=== PATIENT | female | born 1960 | race Caucasian/White ===

== ENCOUNTER 2017-12-14 17:21 | Inpatient (IN) ==
[2017-12-14] MEDS ORDERED: MORPHINE 2 MG/1 ML SYRINGE IV STA (18:05)
[2017-12-14] MEDS ORDERED: ACETAMINOPHEN 500 MG TABLET PO STA (18:05)
[2017-12-14] MEDS ORDERED: ONDANSETRON 4 MG/2 ML VIAL IV STA (18:05)
[2017-12-14] MEDS ORDERED: ALBUTEROL/IPRATROPIUM 3 ML NEB RESP TX STA (18:05)
[2017-12-14] MEDS ORDERED: SODIUM CHLORIDE 0.9% 500 ML IV STA (18:05)
[2017-12-14] MEDS ORDERED: ONDANSETRON 4 MG/2 ML VIAL ONE (18:45)
[2017-12-14] MEDS ORDERED: ACETAMINOPHEN 500 MG TABLET ONE (18:46)
[2017-12-14] MEDS ORDERED: MORPHINE 2 MG/1 ML SYRINGE ONE (18:46)
[2017-12-14] MEDS ORDERED: LEVOFLOXACIN INJ 500 MG in PREMIX 1 EACH IV STA (18:58)
[2017-12-14 19:17] LABS: Basophils % 0.2 % (0.0-0.8); Eosinophils # 0.1 10*3/uL (0.0-0.87); Eosinophils % 0.7 % (0.00-10.9); Hematocrit 35.8 VOL% (35.7-47.0); Hemoglobin 11.1 GM/DL (12.0-16.0); Immature Granulocytes % 0.4 %; Immature Granulocytes Absolute 0.06 #; Lymphocytes % 13.4 % (21.3-54.2); Mean Corpuscular Hemoglobin 25 PG (27-34); Mean Corpuscular Volume 79.6 FL (87-102); Mean Platelet Volume 10.7 FL (9.6-12.0); Monocytes # 0.9 10*3/uL (0.11-0.8); Monocytes % 5.7 % (1.7-12.7); Neutrophils # 12.1 10*3/uL (1.4-7.4); Neutrophils % 79.6 % (38.7-73.9); Platelet Count 333 T/CUMM (130-400); Red Cell Distribution Width 15.9 % (9.3-17.3); White Blood Count 15.2 T/CUMM (4-12)
[2017-12-14 19:37] LABS: Albumin 3.5 G/DL (3.4-5.0); Bilirubin,Total 0.8 MG/DL (0.2-1.0); Calcium 9.3 MG/DL (8.5-10.1); Osmolality,Calculated 273.4 MOS/KG (273-304); Total Protein 7.9 G/DL (6.4-8.3)
[2017-12-14 19:39] LABS: Lactic Acid 1.8 MMOL/L (0.4-2.0); Troponin I Only < 0.015 NG/ML (0.00-0.045)
[2017-12-14] MEDS ORDERED: MORPHINE 2 MG/1 ML SYRINGE IV PRN (20:47)
[2017-12-14] MEDS ORDERED: ACETAMINOPHEN 325 MG TABLET PO PRN (20:47)
[2017-12-14] MEDS ORDERED: ONDANSETRON 4 MG/2 ML VIAL IV PRN (20:47)
[2017-12-14] MEDS ORDERED: GLUCAGON 1 MG VIAL IM PRN (20:47)
[2017-12-14] MEDS ORDERED: DEXTROSE 50% 25 GM/50 ML VIAL IV PRN (20:47)
[2017-12-14] MEDS ORDERED: LEVOFLOXACIN INJ 100 ML IV ONE (21:10)
[2017-12-14] MEDS ORDERED: ALBUTEROL/IPRATROPIUM 3 ML NEB RESP TX PRN (21:13)
[2017-12-14] MEDS: ENOXAPARIN 40 MG/0.4 ML SYRINGE SUBCUT SCH (23:03)
[2017-12-14] MEDS: LEVOFLOXACIN INJ 750 MG in PREMIX 1 EACH IV SCH (23:03)
[2017-12-14] MEDS: INSULIN LISPRO 100 UNIT/ML SUBCUT SCH (23:03)
[2017-12-14] MEDS: SODIUM CHLORIDE 0.9% 1,000 ML IV SCH (23:29)
[2017-12-15 05:46] LABS: Basophils % 0.4 % (0.0-0.8); Eosinophils # 0.3 10*3/uL (0.0-0.87); Eosinophils % 2.9 % (0.00-10.9); Hematocrit 32.6 VOL% (35.7-47.0); Hemoglobin 9.8 GM/DL (12.0-16.0); Immature Granulocytes % 0.5 %; Immature Granulocytes Absolute 0.05 #; Lymphocytes # 1.8 10*3/uL (1.4-4.0); Mean Corpuscular HGB Conc 30.1 GM/DL (32-36); Mean Corpuscular Hemoglobin 24 PG (27-34); Mean Corpuscular Volume 81.1 FL (87-102); Mean Platelet Volume 10.6 FL (9.6-12.0); Monocytes # 0.8 10*3/uL (0.11-0.8); Monocytes % 8.2 % (1.7-12.7); Platelet Count 268 T/CUMM (130-400); Red Blood Count 4.02 MC/CUMM (3.8-5.5); Red Cell Distribution Width 15.9 % (9.3-17.3)
[2017-12-15 06:16] LABS: Calcium 8.6 MG/DL (8.5-10.1)
[2017-12-15] MEDS: PANTOPRAZOLE 40 MG TABLET PO SCH (09:09)
[2017-12-15] MEDS: INSULIN LISPRO 100 UNIT/ML SUBCUT SCH ×4 (09:27→21:36)
[2017-12-15 09:36] LABS: Apearance,Urine Slightly Hazy (Clear); Bilirubin,Urine Negative (Negative); Blood, Urine Negative (Negative); Glucose,Urine (UA) >=500 mg/dL (Negative); Ketones,Urine 5 mg/dL (Negative); Mucus,Urine Occasional /LPF (Occasional); Nitrite,Urine Negative (Negative); Protein,Urine Negative; RBC,Urine 8 /HPF (0-4); Squamous Epithelial Cell,Urine Occasional /HPF (0-10); Urine Color Yellow (Yellow); Urine Specific Gravity 1.014 (1.001-1.035); Urine Urobilinogen < 2.0 EU/DL (0.2-1.0); WBC,Urine 62 /HPF (0-6)
[2017-12-15] MEDS: SODIUM CHLORIDE 0.9% 1,000 ML IV SCH ×2 (10:13→21:36)
[2017-12-15] MEDS: ACETYLCYSTEINE 600 MG CAPSULE PO SCH ×2 (14:20→21:44)
[2017-12-15] MEDS: CYCLOBENZAPRINE 10 MG TABLET PO SCH ×2 (14:20→21:35)
[2017-12-15] MEDS: AZTREONAM 1,000 MG in SYRINGE 1 EACH IV SCH ×2 (14:20→21:55)
[2017-12-15] MEDS: amLODIPine 5 MG TABLET PO SCH (17:30)
[2017-12-15] MEDS: hydroCHLOROthiazide 12.5 MG CAPSULE PO SCH (17:58)
[2017-12-15] MEDS: METOPROLOL SUCCINATE XL 100 MG TABLET PO SCH (17:58)
[2017-12-15] MEDS ORDERED: INSULIN GLARGINE 100 UNIT/ML SUBCUT SCH (21:00)
[2017-12-15] MEDS: LEVOFLOXACIN INJ 750 MG in PREMIX 1 EACH IV SCH (21:32)
[2017-12-15] MEDS: LACTULOSE 20 GM/30 ML UDCUP PO SCH (21:34)
[2017-12-15] MEDS: DOCUSATE SODIUM 100 MG CAPSULE PO SCH (21:35)
[2017-12-15] MEDS: ENOXAPARIN 40 MG/0.4 ML SYRINGE SUBCUT SCH (21:35)
[2017-12-15] MEDS: POLYETHYLENE GLYCOL POWDER 17 GM PACK PO SCH (21:38)
[2017-12-15] MEDS: PRAMIPEXOLE 0.25 MG TABLET PO SCH (21:55)
[2017-12-16] MEDS: AZTREONAM 1,000 MG in SYRINGE 1 EACH IV SCH ×3 (06:21→22:02)
[2017-12-16 06:43] LABS: Basophils # 0.1 10*3/uL (0.0-0.2); Basophils % 0.4 % (0.0-0.8); Eosinophils # 0.4 10*3/uL (0.0-0.87); Eosinophils % 3.1 % (0.00-10.9); Hematocrit 36.3 VOL% (35.7-47.0); Hemoglobin 11.3 GM/DL (12.0-16.0); Immature Granulocytes % 0.4 %; Immature Granulocytes Absolute 0.06 #; Lymphocytes % 21.4 % (21.3-54.2); Mean Corpuscular HGB Conc 31.1 GM/DL (32-36); Mean Corpuscular Hemoglobin 25 PG (27-34); Mean Corpuscular Volume 79.1 FL (87-102); Mean Platelet Volume 10.8 FL (9.6-12.0); Monocytes # 1.3 10*3/uL (0.11-0.8); Monocytes % 9.1 % (1.7-12.7); Neutrophils # 9.2 10*3/uL (1.4-7.4); Neutrophils % 65.6 % (38.7-73.9); Platelet Count 343 T/CUMM (130-400); Red Blood Count 4.59 MC/CUMM (3.8-5.5); Red Cell Distribution Width 15.9 % (9.3-17.3); White Blood Count 13.9 T/CUMM (4-12)
[2017-12-16 06:48] LABS: INR 1.1; PT Patient Result 11.4 SECS
[2017-12-16 07:20] LABS: Folate 14.8 NG/ML (5.4-24.0)
[2017-12-16] MEDS: SODIUM CHLORIDE 0.9% 1,000 ML IV SCH ×2 (07:25→16:14)
[2017-12-16 07:26] LABS: Bilirubin,Total 1.3 MG/DL (0.2-1.0); Calcium 9.1 MG/DL (8.5-10.1); Osmolality,Calculated 272.2 MOS/KG (273-304); Total Protein 7.1 G/DL (6.4-8.3)
[2017-12-16] MEDS: PRAMIPEXOLE 0.25 MG TABLET PO SCH ×3 (09:42→22:00)
[2017-12-16] MEDS: MIRTAZAPINE 30 MG TABLET PO SCH (09:43)
[2017-12-16] MEDS: DOCUSATE SODIUM 100 MG CAPSULE PO SCH ×2 (09:43→22:00)
[2017-12-16] MEDS: glyBURIDE 5 MG TABLET PO SCH ×2 (09:43→16:22)
[2017-12-16] MEDS: amLODIPine 5 MG TABLET PO SCH (09:43)
[2017-12-16] MEDS: hydroCHLOROthiazide 12.5 MG CAPSULE PO SCH (09:43)
[2017-12-16] MEDS: PANTOPRAZOLE 40 MG TABLET PO SCH (09:44)
[2017-12-16] MEDS: ACETYLCYSTEINE 600 MG CAPSULE PO SCH ×2 (09:44→22:01)
[2017-12-16] MEDS: METOPROLOL SUCCINATE XL 100 MG TABLET PO SCH (09:44)
[2017-12-16] MEDS: CYCLOBENZAPRINE 10 MG TABLET PO SCH ×4 (09:44→22:01)
[2017-12-16] MEDS: POLYETHYLENE GLYCOL POWDER 17 GM PACK PO SCH ×2 (09:45→22:01)
[2017-12-16] MEDS: INSULIN LISPRO 100 UNIT/ML SUBCUT SCH ×4 (09:45→22:02)
[2017-12-16] MEDS: LACTULOSE 20 GM/30 ML UDCUP PO SCH ×2 (09:46→22:00)
[2017-12-16 11:08] LABS: Total Protein (Chem) 7.2 G/DL (6.4-8.3)
[2017-12-16 11:41] LABS: Total Protein,Body Fluid 5.1 G/DL
[2017-12-16 12:11] LABS: Lymphocytes,Pleural Fluid 3 %; Monocytes,Pleural Fluid 2 %; Neutrophils,Pleural Fluid 95 %; RBC,Pleural Fluid 4682 T/CUMM
[2017-12-16] MEDS: FERROUS SULFATE 325 MG TABLET PO SCH ×2 (14:04→22:01)
[2017-12-16] MEDS: CLINDAMYCIN INJ 600 MG in PREMIX 1 EACH IV SCH ×2 (16:57→23:53)
[2017-12-16] MEDS: LEVOFLOXACIN INJ 750 MG in PREMIX 1 EACH IV SCH (21:59)
[2017-12-16] MEDS: ENOXAPARIN 40 MG/0.4 ML SYRINGE SUBCUT SCH (22:02)
[2017-12-17] MEDS: SODIUM CHLORIDE 0.9% 1,000 ML IV SCH (05:13)
[2017-12-17] MEDS: AZTREONAM 1,000 MG in SYRINGE 1 EACH IV SCH ×3 (06:47→22:37)
[2017-12-17] MEDS: LACTULOSE 20 GM/30 ML UDCUP PO SCH ×2 (08:50→20:40)
[2017-12-17] MEDS: POLYETHYLENE GLYCOL POWDER 17 GM PACK PO SCH ×2 (08:50→20:39)
[2017-12-17] MEDS: CLINDAMYCIN INJ 600 MG in PREMIX 1 EACH IV SCH ×2 (08:50→16:56)
[2017-12-17] MEDS: INSULIN LISPRO 100 UNIT/ML SUBCUT SCH ×4 (08:50→21:30)
[2017-12-17] MEDS: FERROUS SULFATE 325 MG TABLET PO SCH ×2 (08:51→20:39)
[2017-12-17] MEDS: CYCLOBENZAPRINE 10 MG TABLET PO SCH ×3 (08:51→20:39)
[2017-12-17] MEDS: MULTIVITAMIN (BEROCCA) TABLET PO SCH (08:51)
[2017-12-17] MEDS: CHOLECALCIFEROL 1,000 UNIT TABLET PO SCH (08:51)
[2017-12-17] MEDS: MIRTAZAPINE 30 MG TABLET PO SCH (08:51)
[2017-12-17] MEDS: glyBURIDE 5 MG TABLET PO SCH ×2 (08:51→17:05)
[2017-12-17] MEDS: METOPROLOL SUCCINATE XL 100 MG TABLET PO SCH (08:52)
[2017-12-17] MEDS: DOCUSATE SODIUM 100 MG CAPSULE PO SCH ×2 (08:52→20:39)
[2017-12-17] MEDS: PANTOPRAZOLE 40 MG TABLET PO SCH (08:52)
[2017-12-17] MEDS: hydroCHLOROthiazide 12.5 MG CAPSULE PO SCH (08:52)
[2017-12-17] MEDS: ACETYLCYSTEINE 600 MG CAPSULE PO SCH ×2 (08:52→20:39)
[2017-12-17] MEDS: PRAMIPEXOLE 0.25 MG TABLET PO SCH ×3 (08:52→20:39)
[2017-12-17] MEDS: amLODIPine 5 MG TABLET PO SCH (08:52)
[2017-12-17] MEDS: ENOXAPARIN 40 MG/0.4 ML SYRINGE SUBCUT SCH (20:40)
[2017-12-17] MEDS: LEVOFLOXACIN INJ 750 MG in PREMIX 1 EACH IV SCH (21:49)
[2017-12-18] MEDS: CLINDAMYCIN INJ 600 MG in PREMIX 1 EACH IV SCH ×3 (00:37→16:16)
[2017-12-18] MEDS: AZTREONAM 1,000 MG in SYRINGE 1 EACH IV SCH ×3 (05:50→22:21)
[2017-12-18] MEDS: INSULIN LISPRO 100 UNIT/ML SUBCUT SCH ×4 (07:58→22:08)
[2017-12-18] MEDS: ACETYLCYSTEINE 600 MG CAPSULE PO SCH ×2 (08:29→20:51)
[2017-12-18] MEDS: LACTULOSE 20 GM/30 ML UDCUP PO SCH ×2 (08:29→20:50)
[2017-12-18] MEDS: CHOLECALCIFEROL 1,000 UNIT TABLET PO SCH (08:29)
[2017-12-18] MEDS: PANTOPRAZOLE 40 MG TABLET PO SCH (08:29)
[2017-12-18] MEDS: MULTIVITAMIN (BEROCCA) TABLET PO SCH (08:29)
[2017-12-18] MEDS: MIRTAZAPINE 30 MG TABLET PO SCH (08:29)
[2017-12-18] MEDS: hydroCHLOROthiazide 12.5 MG CAPSULE PO SCH (08:29)
[2017-12-18] MEDS: PRAMIPEXOLE 0.25 MG TABLET PO SCH ×3 (08:29→20:52)
[2017-12-18] MEDS: FERROUS SULFATE 325 MG TABLET PO SCH ×2 (08:30→21:52)
[2017-12-18] MEDS: amLODIPine 5 MG TABLET PO SCH (08:30)
[2017-12-18] MEDS: METOPROLOL SUCCINATE XL 100 MG TABLET PO SCH (08:30)
[2017-12-18] MEDS: glyBURIDE 5 MG TABLET PO SCH ×2 (08:30→16:15)
[2017-12-18] MEDS: POLYETHYLENE GLYCOL POWDER 17 GM PACK PO SCH ×2 (08:30→20:49)
[2017-12-18] MEDS: DOCUSATE SODIUM 100 MG CAPSULE PO SCH ×2 (08:30→20:51)
[2017-12-18] MEDS: CYCLOBENZAPRINE 10 MG TABLET PO SCH ×3 (08:30→20:51)
[2017-12-18] MEDS ORDERED: ALTEPLASE 5 MG in SYRINGE 1 EACH INTRAPLEUR ONE (10:00)
[2017-12-18 10:49] LABS: Albumin (SPE) 3.5 G/DL (3.2-5.3); Albumin (SPE) Rel % 47.7 %; Alpha 1 (SPE) 0.3 G/DL (0.1-0.4); Alpha 1 (SPE) Rel % 4.5 %; Alpha 2 (SPE) Rel % 14.4 %; Beta (SPE) 1.2 G/DL (0.5-1.1); Beta (SPE) Rel % 16.2 %; Gamma (SPE) 1.2 G/DL (0.7-1.7); Gamma (SPE) Rel % 17.2 %
[2017-12-18 13:40] LABS: Total Volume,Urine 1450 ML (400-2000)
[2017-12-18 13:48] LABS: Collection Time,Urine 24 HOURS; Total Protein 24 Hr Ur Result 884 MG/24HR (0-149.1)
[2017-12-18] MEDS: LEVOFLOXACIN INJ 750 MG in PREMIX 1 EACH IV SCH (20:44)
[2017-12-18] MEDS: ENOXAPARIN 40 MG/0.4 ML SYRINGE SUBCUT SCH (20:52)
[2017-12-19] MEDS: CLINDAMYCIN INJ 600 MG in PREMIX 1 EACH IV SCH ×3 (00:39→18:02)
[2017-12-19] MEDS: AZTREONAM 1,000 MG in SYRINGE 1 EACH IV SCH ×3 (06:25→22:40)
[2017-12-19 06:49] LABS: Basophils % 0.3 % (0.0-0.8); Eosinophils # 0.2 10*3/uL (0.0-0.87); Eosinophils % 1.9 % (0.00-10.9); Hematocrit 35.1 VOL% (35.7-47.0); Immature Granulocytes % 0.7 %; Immature Granulocytes Absolute 0.06 #; Lymphocytes # 1.8 10*3/uL (1.4-4.0); Lymphocytes % 20.1 % (21.3-54.2); Mean Corpuscular HGB Conc 31.3 GM/DL (32-36); Mean Corpuscular Hemoglobin 24 PG (27-34); Mean Platelet Volume 10.3 FL (9.6-12.0); Monocytes # 1.1 10*3/uL (0.11-0.8); Monocytes % 11.9 % (1.7-12.7); Neutrophils # 5.9 10*3/uL (1.4-7.4); Neutrophils % 65.1 % (38.7-73.9); Platelet Count 341 T/CUMM (130-400); White Blood Count 9.1 T/CUMM (4-12)
[2017-12-19 07:18] LABS: Calcium 8.2 MG/DL (8.5-10.1); Potassium 3.5 MMOL/L (3.5-5.1)
[2017-12-19 09:32] LABS: 24 Hr Protein (Bench) 884 MG/24HR (0-149.1)
[2017-12-19] MEDS: INSULIN LISPRO 100 UNIT/ML SUBCUT SCH ×4 (09:52→21:07)
[2017-12-19] MEDS: POLYETHYLENE GLYCOL POWDER 17 GM PACK PO SCH ×2 (09:52→21:05)
[2017-12-19] MEDS: MULTIVITAMIN (BEROCCA) TABLET PO SCH (09:54)
[2017-12-19] MEDS: CHOLECALCIFEROL 1,000 UNIT TABLET PO SCH (09:54)
[2017-12-19] MEDS: FERROUS SULFATE 325 MG TABLET PO SCH ×2 (09:55→20:56)
[2017-12-19] MEDS: CYCLOBENZAPRINE 10 MG TABLET PO SCH ×3 (09:55→20:56)
[2017-12-19] MEDS: ACETYLCYSTEINE 600 MG CAPSULE PO SCH ×2 (09:55→20:56)
[2017-12-19] MEDS: MIRTAZAPINE 30 MG TABLET PO SCH (09:55)
[2017-12-19] MEDS: glyBURIDE 5 MG TABLET PO SCH ×2 (09:55→18:02)
[2017-12-19] MEDS: amLODIPine 5 MG TABLET PO SCH (09:55)
[2017-12-19] MEDS: hydroCHLOROthiazide 12.5 MG CAPSULE PO SCH (09:55)
[2017-12-19] MEDS: DOCUSATE SODIUM 100 MG CAPSULE PO SCH ×2 (09:56→20:57)
[2017-12-19] MEDS: LACTULOSE 20 GM/30 ML UDCUP PO SCH ×2 (09:56→20:57)
[2017-12-19] MEDS: PANTOPRAZOLE 40 MG TABLET PO SCH (09:56)
[2017-12-19] MEDS: PRAMIPEXOLE 0.25 MG TABLET PO SCH ×3 (10:05→21:06)
[2017-12-19] MEDS: METOPROLOL SUCCINATE XL 100 MG TABLET PO SCH (10:06)
[2017-12-19] MEDS ORDERED: MORPHINE 4 MG/1 ML VIAL IV PRN (12:01)
[2017-12-19] MEDS: LEVOFLOXACIN INJ 750 MG in PREMIX 1 EACH IV SCH (20:57)
[2017-12-19] MEDS: ENOXAPARIN 40 MG/0.4 ML SYRINGE SUBCUT SCH (20:59)
[2017-12-20] MEDS: CLINDAMYCIN INJ 600 MG in PREMIX 1 EACH IV SCH ×3 (00:53→15:57)
[2017-12-20] MEDS: AZTREONAM 1,000 MG in SYRINGE 1 EACH IV SCH ×3 (06:48→21:37)
[2017-12-20] MEDS: INSULIN LISPRO 100 UNIT/ML SUBCUT SCH ×4 (08:09→21:33)
[2017-12-20] MEDS: FERROUS SULFATE 325 MG TABLET PO SCH ×2 (09:35→21:35)
[2017-12-20] MEDS: CHOLECALCIFEROL 1,000 UNIT TABLET PO SCH (09:35)
[2017-12-20] MEDS: PANTOPRAZOLE 40 MG TABLET PO SCH (09:35)
[2017-12-20] MEDS: PRAMIPEXOLE 0.25 MG TABLET PO SCH ×3 (09:35→21:35)
[2017-12-20] MEDS: ACETYLCYSTEINE 600 MG CAPSULE PO SCH ×2 (09:35→21:36)
[2017-12-20] MEDS: glyBURIDE 5 MG TABLET PO SCH ×2 (09:37→18:01)
[2017-12-20] MEDS: MULTIVITAMIN (BEROCCA) TABLET PO SCH (09:37)
[2017-12-20] MEDS: hydroCHLOROthiazide 12.5 MG CAPSULE PO SCH (09:37)
[2017-12-20] MEDS: amLODIPine 5 MG TABLET PO SCH (09:38)
[2017-12-20] MEDS: MIRTAZAPINE 30 MG TABLET PO SCH (09:38)
[2017-12-20] MEDS: CYCLOBENZAPRINE 10 MG TABLET PO SCH ×3 (09:38→21:35)
[2017-12-20] MEDS: POLYETHYLENE GLYCOL POWDER 17 GM PACK PO SCH ×2 (09:38→21:35)
[2017-12-20] MEDS: LACTULOSE 20 GM/30 ML UDCUP PO SCH ×2 (09:38→21:34)
[2017-12-20] MEDS: METOPROLOL SUCCINATE XL 100 MG TABLET PO SCH (09:38)
[2017-12-20] MEDS: DOCUSATE SODIUM 100 MG CAPSULE PO SCH ×2 (09:38→21:38)
[2017-12-20] MEDS: LEVOFLOXACIN INJ 750 MG in PREMIX 1 EACH IV SCH (21:36)
[2017-12-20] MEDS: ENOXAPARIN 40 MG/0.4 ML SYRINGE SUBCUT SCH (21:36)
[2017-12-21] MEDS: CLINDAMYCIN INJ 600 MG in PREMIX 1 EACH IV SCH ×2 (00:33→09:05)
[2017-12-21] MEDS: AZTREONAM 1,000 MG in SYRINGE 1 EACH IV SCH ×2 (06:46→15:24)
[2017-12-21] MEDS: INSULIN LISPRO 100 UNIT/ML SUBCUT SCH ×4 (08:57→21:23)
[2017-12-21] MEDS: glyBURIDE 5 MG TABLET PO SCH ×2 (09:02→16:43)
[2017-12-21] MEDS: METOPROLOL SUCCINATE XL 100 MG TABLET PO SCH (09:02)
[2017-12-21] MEDS: amLODIPine 5 MG TABLET PO SCH (09:02)
[2017-12-21] MEDS: CHOLECALCIFEROL 1,000 UNIT TABLET PO SCH (09:03)
[2017-12-21] MEDS: MIRTAZAPINE 30 MG TABLET PO SCH (09:03)
[2017-12-21] MEDS: MULTIVITAMIN (BEROCCA) TABLET PO SCH (09:03)
[2017-12-21] MEDS: ACETYLCYSTEINE 600 MG CAPSULE PO SCH ×2 (09:03→21:22)
[2017-12-21] MEDS: PRAMIPEXOLE 0.25 MG TABLET PO SCH ×3 (09:03→21:21)
[2017-12-21] MEDS: PANTOPRAZOLE 40 MG TABLET PO SCH (09:04)
[2017-12-21] MEDS: LACTULOSE 20 GM/30 ML UDCUP PO SCH ×2 (09:04→21:23)
[2017-12-21] MEDS: CYCLOBENZAPRINE 10 MG TABLET PO SCH ×3 (09:04→21:22)
[2017-12-21] MEDS: DOCUSATE SODIUM 100 MG CAPSULE PO SCH ×2 (09:04→21:23)
[2017-12-21] MEDS: FERROUS SULFATE 325 MG TABLET PO SCH ×2 (09:04→21:22)
[2017-12-21] MEDS: POLYETHYLENE GLYCOL POWDER 17 GM PACK PO SCH ×2 (09:04→21:24)
[2017-12-21] MEDS: hydroCHLOROthiazide 12.5 MG CAPSULE PO SCH (09:04)
[2017-12-21] MEDS: CLINDAMYCIN 300 MG CAPSULE PO SCH (16:43)
[2017-12-21] MEDS ORDERED: LEVOFLOXACIN 750 MG TABLET PO SCH (21:00)
[2017-12-21] MEDS: ENOXAPARIN 40 MG/0.4 ML SYRINGE SUBCUT SCH (21:21)
[2017-12-22] MEDS: CLINDAMYCIN 300 MG CAPSULE PO SCH ×2 (01:29→08:49)
[2017-12-22] MEDS: INSULIN LISPRO 100 UNIT/ML SUBCUT SCH ×2 (08:01→12:11)
[2017-12-22] MEDS: MIRTAZAPINE 30 MG TABLET PO SCH (08:50)
[2017-12-22] MEDS: MULTIVITAMIN (BEROCCA) TABLET PO SCH (08:50)
[2017-12-22] MEDS: glyBURIDE 5 MG TABLET PO SCH (08:50)
[2017-12-22] MEDS: FERROUS SULFATE 325 MG TABLET PO SCH (08:50)
[2017-12-22] MEDS: CHOLECALCIFEROL 1,000 UNIT TABLET PO SCH (08:50)
[2017-12-22] MEDS: amLODIPine 5 MG TABLET PO SCH (08:51)
[2017-12-22] MEDS: hydroCHLOROthiazide 12.5 MG CAPSULE PO SCH (08:51)
[2017-12-22] MEDS: METOPROLOL SUCCINATE XL 100 MG TABLET PO SCH (08:51)
[2017-12-22] MEDS: PRAMIPEXOLE 0.25 MG TABLET PO SCH (08:51)
[2017-12-22] MEDS: CYCLOBENZAPRINE 10 MG TABLET PO SCH (08:51)
[2017-12-22] MEDS: POLYETHYLENE GLYCOL POWDER 17 GM PACK PO SCH (08:51)
[2017-12-22] MEDS: ACETYLCYSTEINE 600 MG CAPSULE PO SCH (08:51)
[2017-12-22] MEDS: DOCUSATE SODIUM 100 MG CAPSULE PO SCH (08:52)
[2017-12-22] MEDS: PANTOPRAZOLE 40 MG TABLET PO SCH (08:52)
[2017-12-22] MEDS: LACTULOSE 20 GM/30 ML UDCUP PO SCH (08:52)
[2017-12-22 12:23] VITALS: BP 169/86
== END 2017-12-22 15:10 | disposition home or self-care (01) | DRG 871 ==
LOC: N.ED 17:21 → N.EDINP 20:42 → SUATTDRO 20:42 → N.5E 21:10
PROVIDERS: ADMIT Hospitalist; ATTEND Hospitalist
PROC: IRGDHTC (2017-12-17 16:20)